=== PATIENT | female | born 1945 | race Caucasian/White ===

== ENCOUNTER 2024-06-13 19:05 | Emergency (ER) | payer MEDICARE, BC, SELFPAY ==
[2024-06-13 19:08] VITALS: BP 131/69
[2024-06-13 19:27] LABS: % Basophils 0.3 % (0-2); % Eosinophils 1.1 % (0-6); % Immature Granulocytes 0.3 % (0-0.5); % Monocytes 6.3 % (1.7-9.3); Absolute Eosinophils 0.1 10^3/uL (0-0.7); Absolute Lymphocytes 1.2 10^3/uL (1.2-3.4); Absolute Monocytes 0.6 10^3/uL (0.1-0.6); Hematocrit 36.6 % (37.0-47.0); Hemoglobin 12.5 g/dL (12.0-16.0); Mean Corp Hgb Conc. 34.2 g/dL (33.0-37.0); Mean Corpuscular Hgb 35.3 pg (27.0-31.0); Mean Corpuscular Volume 103.4 fL (81.0-99.0); Mean Platelet Volume 10.1 fL (7.4-10.4); Nucleated Red Blood Cells % 0 %; Platelet Count 249 10^3/uL (130-400); Red Blood Cell Count 3.54 10^6/uL (4.20-5.40); Red Cell Dist. Width 12.4 % (11.5-14.5); White Blood Cell Count 8.8 10^3/uL (4.8-10.8)
[2024-06-13 19:48] LABS: ALT (SGPT) 15 U/L (0-35); AST (SGOT) 20 U/L (14-36); Albumin 4.7 g/dl (3.5-5.0); Alkaline Phosphatase 55 U/L (38-126); Blood Urea Nitrogen 22 mg/dl (7-17); Calcium 9.7 mg/dl (8.4-10.2); Carbon Dioxide 25 mmol/L (22-30); Chloride 102 mmol/L (98-107); Glucose 162 mg/dl (70-99); Sodium 139 mmol/L (135-145); Total Bilirubin 0.4 mg/dl (0.2-1.3); Total Protein 7.1 g/dl (6.3-8.2); eGFR 50.48
[2024-06-13 20:49] VITALS: BMI 22.1
[2024-06-13 20:53] VITALS: BP 135/82
--- NOTE | 2024-06-13 22:27 | ED.CVA ---
History of Present Illness
General
Chief Complaint: CVA/TIA Symptoms
Source: patient
Exam Limitations: none
Time Seen by Provider: 06/13/24 22:04
Nursing documentation reviewed up to this point in time: agreed with
Onset of Stroke Symptoms
Onset of symptoms known: Yes
Date of onset of symptoms: 06/10/24
History of Present Illness
History of Present Illness:
Pleasant 79-year-old female presents to the emergency department with confusion that began 3 days ago and was self-limited. Patient was set to get an IVIG infusion at her neurologist office in [place]. They gave her pretreatment of Benadryl and
Tylenol. Patient states that they want him not given early IVIG and sent her home. She got home and texted her granddaughter 'nonsensical letters and words '. She then fell asleep for 4 hours. She awakened and everything seemed to be fine. She
felt that it was a reaction to the Benadryl and did not think much more of it. Went to see her neurologist again to get the infusion and was told that she needed to go to the emergency department to 'rule out a stroke '. She states that she has
had no symptoms for the last 3 days and is rescheduled for the IVIG infusion for next week. Patient does state that she had a headache last evening. She had some nausea with with it but the headache resolved with Advil and she has been feeling
fine since. Her mother had a leaking brain aneurysm. Patient was evaluated for an aneurysm with an MRA several years ago. It was negative. Patient has no complaints at this time.
Past History
Past History
ED Past Medical History: CAD, NIDDM and Other (Myasthenia gravis)
ED Past Surgical History: None
Social History
Tobacco: Non-smoker
Alcohol: Other
Review of Systems
Review of Systems
Allergies reviewed?: Yes
All Other Systems: ROS reviewed and negative except as documented in HPI and ROS
Constitutional: Reports no symptoms
EENT: Reports no symptoms
Respiratory: Reports no symptoms
Cardiac: Reports no symptoms
ABD/GI: Reports no symptoms
: Reports no symptoms
Musculoskeletal: Reports no symptoms
Skin: Reports no symptoms
Neurological: Reports headache (Resolved)
Endocrine: Reports no symptoms
Hematologic/Lymphatic: Reports no symptoms
Psychiatric: Reports no symptoms
Phy Exam
General Physical Exam
General Presentation: well appearing and no apparent distress
General Skin: warm and dry
General Habitus: normal
General Mental: alert
General Hydration: appears well hydrated
ENT Exam
ENT Exam: EOMI, pharynx normal, neck supple and normocephalic
Eye Exam
Eye Exam: PERRL, cornea clear and conjunctiva normal
Cardiovascular Exam
Cardiovascular Exam: regular rate/rhythm, no edema, no murmur and normal peripheral pulses
Pulmonary Exam
Pulmonary Exam: lungs clear, no respiratory distress, no rales, no crackles, no rhonchi, no stridor, no wheezing and no cough
Gastrointestinal Exam
Gastrointestinal Exam: normal bowel sounds, non tender, soft, no organomegaly, no pulsatile mass and non distended
Neurological Exam
Neurological Exam: alert, oriented x3, no motor deficits and speech normal
NIH Stroke Score
Level of Consciousness: 0 - Alert
LOC questions: 0-Answers both correctly
LOC Commands: 0-Performs both correctly
Best Gaze: 0-Normal
Visual Fuentes: 0=Normal, no visual loss
Facial palsy: 0=Normal, symmetrical
Motor - Right Arm: 0=No drift 10 seconds
Motor - Left Arm: 0=No drift 10 seconds
Motor - Right Le-No drift 5 seconds
Motor - Left Le-No drift 5 seconds
Limb Ataxia: 0-Absent
Sensation: 0-Normal
Best Language: 0-No aphasia
Dysarthria: 0-Normal
Extinction and Inattention: 0-No abnormality
Total Score:: 0
Alteplase Contraindication
Reasons for NON-Treatment with Thrombolytics: Time and Rapid improvement
[place] Coma Scale
Eye Opening: Spontaneous
Verbal Response: Oriented
Motor Response: Obeys Commands
GCS Total Score: 15
Cerebellar
Cerebellar Function: normal finger to nose and normal heel to bradley
Musculoskeletal Exam
Musculoskeletal Exam: full ROM and no edema
Skin Exam
Skin Exam: normal color, warm/dry, no rash and no petechia
Psychiatric Exam
Psychiatric Exam: normal mood/affect
Course
Orders/Labs/Results
Orders:
Orders
06/13/24 19:22
Complete Blood Count/With Diff Urgent
Comprehensive Metabolic Panel Urgent
06/13/24 20:34
CT Head W/o Iv Contrast Urgent
Comment:
Reason For Exam: headache, difficulty typing words
06/13/24 22:26
CT Head & Neck Angio W/wo IV Urgent
Comment:
Reason For Exam: headache, confusion
Abnormal Lab Results
06/13/24
19:22
RBC 3.54 L 10^6/uL
(4.20-5.40)
Hct 36.6 L %
(37.0-47.0)
MCV 103.4 H fL
(81.0-99.0)
MCH 35.3 H pg
(27.0-31.0)
Absolute Neuts (auto) 7.0 H 10^3/uL
(1.4-6.5)
Neutrophils % 79.0 H %
(42.2-75.2)
Lymphocytes % 13.0 L %
(20.5-51.1)
BUN 22 H mg/dl
(7-17)
Creatinine 1.1 H mg/dL
(0.6-1.0)
Glucose 162 H mg/dl
(70-99)
05/08/25 19:22
06/13/24 19:22
Vital Signs
Initial and Last Documented VS:
Initial Vital Signs
Temp Pulse Resp BP Pulse Ox
98.2 F 84 16 131/69 97
06/13/24 19:08 06/13/24 19:08 06/13/24 19:08 06/13/24 19:08 06/13/24 19:08
Last Documented Vital Signs
Temp Pulse Resp BP Pulse Ox
98.2 F 85 16 156/88 98
06/13/24 19:08 06/13/24 23:15 06/13/24 23:15 06/13/24 23:00 06/13/24 23:15
*Critical Care Note
Total Time (30-74mins, 75-104mins- exclusive of procedures): Not Applicable
comment:
Exams: CT Head W/o Iv Contrast
CPT: 39428
PROCEDURE: CT Head W/o Iv Contrast
CLINICAL INDICATION: Headache. Difficulty typing words. Egy-[id number] diabetes mellitus. Breast cancer. Myasthenia gravis.
TECHNIQUE: A CT examination of the head was performed without intravenous contrast. Coronal reformatted images were obtained. Automatic exposure control radiation dose reduction technology was utilized.
COMPARISON: None available.
FINDINGS:
There is no CT evidence for acute intracranial hemorrhage or extra-axial collection. There is mild diffuse symmetric cerebral and cerebellar volume loss. There is no midline shift or herniation. The ventricles are midline without evidence for
obstructive hydrocephalus.
There is no CT evidence for acute transcortical infarct. 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 There is
severe calcific atherosclerotic plaque in the right intracranial internal carotid artery and in the right intracranial vertebral artery. The right vertebral artery is tortuous causing mild compression on the right side of the medulla.
There is minimal mucosal thickening in the right frontal sinus. The mastoid air cells and middle ear cavities are clear. The imaged orbits appear normal.
IMPRESSION:
1. No CT evidence for acute intracranial hemorrhage or transcortical infarct.
2. 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
3. Mild diffuse cerebral and cerebellar volume loss.
Electronically signed by Vamsi Forte MD, 06/13/2024 9:33 PM
Update Note
Update Note:
NAME: BEN MENDOZA
DATE OF EXAM: 06/13/2024
Patient No: [id number]
Physician: SANJAY^Eula
Date of : 1945
Past Medical History (entered by Technologist):
Reason For Exam (entered by Technologist):
Other Notes (entered by Technologist): atient reports being sent to ED by neurologist. Reports trying to text her grandaughter 3 days ago and was unable to type words. Patient with history of myasthenia gravis and is supposed to have IVIG infusion
next week. Patient states her neurologist will not do infusion until she is evaluated for these symptoms. Patient no longer has any symptoms. Reports headache last night
Additional Information (per [facility] Radiologist):
Comparison from earlier today
CTA head and neck with IV contrast
IMPRESSION:
CTA Neck:
The bilateral vertebral arteries are widely patent. Bilateral common carotid and internal carotid arteries are widely patent without significant stenosis.
CTA Head:
[place] is patent without aneurysm, stenosis, or occlusion.
The results were faxed/finalized only at 1285 ET. If you would like to discuss this case directly please call [phone] (extension [phone]). If you can't reach me at this number, do not leave a voicemail. Please call [phone] ext [phone] and ask for
the next available Radiologist.
Santiago Renee M.D.
This report has been electronically signed and verified by the Radiologist whose name is printed above.
ED Attending Note
-
Portions of this chart may have been created with voice recognition software.� Occasional wrong word or��sound alike� substitutions may have occurred due to the inherent limitations of voice recognition software.
Discharge Plan
Departure
Patient Disposition: Home (Routine Discharge)
Date of Disposition: 06/14/24
Time of Disposition: 00:13
Patient with high blood pressure during this ER visit?: Yes
Condition: Good
Discharge Problem:
Headache
Instructions: Headaches in adults, BLOOD PRESSURE
Prescriptions:
No Action
azathioprine 50 MG tablet
50 mg PO DAILY
aspirin 81 MG tablet,delayed release (DR/EC)
81 mg PO DAILY
sertraline 50 MG tablet
50 mg PO DAILY
esomeprazole magnesium [Nexium Packet] [address] for susp in packet
40 mg PO DAILY
pitavastatin calcium [Livalo] 4 MG tablet
4 mg PO DAILY
alirocumab [Praluent Syringe] 75 MG/ML syringe
75 mg IM Q2W
Januvia
1 tab PO DAILY
Referrals:
Joslyn Nino MD [Family Provider] -
Activity Restrictions/Additional Instructions:
Thank You for choosing [facility].
It was a pleasure meeting you and taking part in your care. We hope for your continued healing and wellness.
Please read discharge instructions in their entirety. However, they are for general education and may not describe your exact diagnosis at discharge. Information on your ER visit and medical conditions were discussed with you along with appropriate
follow up information...
If indicated, please take your medications as instructed and indicated on discharge paperwork.
Please schedule a follow up appointment as directed. Call to schedule an appointment
Please return to the emergency department with ANY change in, persisting, or worsening of symptoms. If any of your symptoms do not improve, or persist, or become more severe within 6-12 hours, please return to the emergency department for further
care.
Please return to the emergency department if you develop a headache, neck pain/stiffness, fever greater than 100.4F, chest pain, shortness of breath, persistent nausea, vomiting, slurred speech, difficulty walking, numbness/tingling, weakness, signs
of infection or any other symptoms that are worrisome to you.
If you have any questions or concerns please do not hesitate to call the Hospital at or E-mail me directly at [email or web address]
Interventions
Interventions:
*Risk Screen - Suicide Last Done: 06/13/24 19:08
*General Assessment Last Done: 06/13/24 19:08
*Neglect/Abuse Screening Last Done: 06/13/24 19:08
*ED- Fall Risk Assessment Last Done: 06/13/24 20:49
*ED COVID-19 Vaccine History Last Done: 06/13/24 19:08
ED- Pulmonary Assessment Last Done: 06/13/24 21:14
ED- Neurological Assessment Last Done: 06/13/24 21:14
ED- Cardiac Assessment Last Done: 06/13/24 21:14
Discharge Date and Time
Print Language: SYRIAC
[2024-06-13 22:30] VITALS: BP 162/97
[2024-06-13 23:00] VITALS: BP 156/88
== END 2024-06-14 00:29 | disposition home or self-care (01) ==
LOC: EMR 19:05
PROVIDERS: Emergency Medicine; EMERGENCY PHYSICIAN Student in an Organized Health Care Education/Training Program; FAMILY PHYSICIAN Internal Medicine Geriatric Medicine
DX: R51.9 Headache, unspecified (principal); I25.10 Atherosclerotic heart disease of native coronary artery without angina pectoris; E11.9 Type 2 diabetes mellitus without complications; G70.00 Myasthenia gravis without (acute) exacerbation; C50.919 Malignant neoplasm of unspecified site of unspecified female breast
CPT/HCPCS: 99284; 70450; 70496; 70498; 80053; 85025; Q9967